=== PATIENT | female | born 2000 | race Two or more races ===

== ENCOUNTER 2018-04-14 14:40 | Emergency (ER) | payer MEDICAID, OTHER ==
[~2018-04-14] VITALS: Ht 152.4 cm; Wt 68.0 kg
[2018-04-14 14:58] VITALS: BP 130/83
[2018-04-14 16:57] LABS: Urine Bacteria MANY /hpf (None Seen); Urine Blood Negative /uL (Negative); Urine Mucus FEW (None Seen); Urine Specific Gravity 1.026 (1.001-1.035); Urine WBC 32 /hpf (0 - 5)
== END 2018-04-14 16:01 | disposition home or self-care (01) ==
LOC: ER 14:40
DX: N39.0 Urinary tract infection, site not specified (principal)
CPT/HCPCS: 81001; 81025